=== PATIENT | female | born 1985 | race Caucasian/White ===

== ENCOUNTER 2023-05-19 07:45 | Outpatient (CLI) | payer BC | END 2023-05-19 07:46 | disposition home or self-care (01) | LOC: NM 07:45 | PROVIDERS: ATTEND Physician Assistant Medical | DX: K21.9 Gastro-esophageal reflux disease without esophagitis (principal); R11.2 Nausea with vomiting, unspecified; R19.7 Diarrhea, unspecified; K30 Functional dyspepsia | CPT/HCPCS: 78264; A9541 ==